=== PATIENT | male | born 1960 | race Caucasian/White ===

== ENCOUNTER 2019-08-29 07:11 | Inpatient (IN) ==
[2019-08-29 08:36] LABS: Albumin 2.8 G/DL (3.4-5.0); Bilirubin,Total 1.4 MG/DL (0.2-1.0); Calcium 8.3 MG/DL (8.5-10.1); Osmolality,Calculated 290.5 MOS/KG (273-304); Total Protein 6.8 G/DL (6.4-8.3)
[2019-08-29 08:49] LABS: Basophils # 0.1 10*3/uL (0.0-0.2); Basophils % 0.6 % (0.0-0.8); Eosinophils # 0.1 10*3/uL (0.0-0.87); Eosinophils % 1.1 % (0.00-10.9); Hematocrit 40.6 VOL% (42.0-52.0); Hemoglobin 13.3 GM/DL (14.0-18.0); Immature Granulocytes % 15.9 %; Immature Granulocytes Absolute 2.08 #; Lymphocytes # 0.9 10*3/uL (1.4-4.0); Lymphocytes % 6.6 % (21.2-54.2); Mean Corpuscular HGB Conc 32.8 GM/DL (32-36); Mean Corpuscular Volume 92.1 FL (87-102); Mean Platelet Volume 11.5 FL (9.6-12.0); Monocytes % 0.4 % (1.7-12.7); Neutrophils % 75.4 % (38.7-73.9); Red Blood Count 4.41 MC/CUMM (3.8-5.5); Red Cell Distribution Width 12.6 % (9.3-17.3); White Blood Count 13.1 T/CUMM (4-12)
[2019-08-29 08:54] LABS: Platelet Count 18 T/CUMM (130-400)
[2019-08-29 09:14] LABS: Band Neutrophils 9 % (0-10); Lymphocytes 5 % (20-55); Platelet Estimate Decreased; Segmented Neutrophils 84 % (50-85); Total Cells Counted 100
[2019-08-29 09:15] LABS: Anisocytosis 1+; Smudge Cells Few
[2019-08-29] MEDS ORDERED: ONDANSETRON 4 MG/2 ML VIAL ONE (09:24)
[2019-08-29] MEDS ORDERED: MORPHINE 4 MG/1 ML VIAL ONE (09:24)
[2019-08-29] MEDS ORDERED: ONDANSETRON 4 MG/2 ML VIAL IV STA (09:32)
[2019-08-29] MEDS ORDERED: MORPHINE 4 MG/1 ML VIAL IV STA (09:32)
[2019-08-29] MEDS ORDERED: ONDANSETRON 4 MG/2 ML VIAL IV PRN (11:18)
[2019-08-29] MEDS ORDERED: ACETAMINOPHEN 325 MG TABLET PO PRN (11:18)
[2019-08-29] MEDS ORDERED: SODIUM CHLORIDE 0.9% 1,000 ML IV PRN (11:42)
[2019-08-29] MEDS: ALBUTEROL/IPRATROPIUM 3 ML NEB RESP TX SCH ×2 (12:01→20:24)
[2019-08-29] MEDS: SODIUM CHLORIDE 0.9% 1,000 ML IV SCH (12:55)
[2019-08-29] MEDS: MORPHINE 4 MG/1 ML VIAL IV PRN ×2 (14:06→23:17)
[2019-08-30] MEDS: ALBUTEROL/IPRATROPIUM 3 ML NEB RESP TX SCH ×4 (00:05→20:28)
[2019-08-30] MEDS: SODIUM CHLORIDE 0.9% 1,000 ML IV SCH ×2 (00:29→13:49)
[2019-08-30 04:50] LABS: Basophils # 0.1 10*3/uL (0.0-0.2); Basophils % 1.2 % (0.0-0.8); Eosinophils # 0.1 10*3/uL (0.0-0.87); Eosinophils % 3.5 % (0.00-10.9); Hematocrit 32.5 VOL% (42.0-52.0); Hemoglobin 10.7 GM/DL (14.0-18.0); Immature Granulocytes % 19.7 %; Immature Granulocytes Absolute 0.79 #; Lymphocytes % 24.1 % (21.2-54.2); Mean Corpuscular HGB Conc 32.9 GM/DL (32-36); Mean Corpuscular Volume 90.8 FL (87-102); Mean Platelet Volume 10.6 FL (9.6-12.0); Monocytes % 1.5 % (1.7-12.7); Red Blood Count 3.58 MC/CUMM (3.8-5.5); Red Cell Distribution Width 12.4 % (9.3-17.3)
[2019-08-30 04:53] LABS: Platelet Count 17 T/CUMM (130-400)
[2019-08-30 05:18] LABS: Band Neutrophils 2 % (0-10); Eosinophils 5 % (0-10); Lymphocytes 25 % (20-55); Platelet Estimate Decreased; Segmented Neutrophils 65 % (50-85); Total Cells Counted 100
[2019-08-30 05:19] LABS: Albumin 2.5 G/DL (3.4-5.0); Bilirubin,Total 1.7 MG/DL (0.2-1.0); Calcium 8.2 MG/DL (8.5-10.1); Osmolality,Calculated 282.5 MOS/KG (273-304); Thyroid Stimulating Hormone 0.718 uIU/ml (0.358-3.74); Total Protein 6.2 G/DL (6.4-8.3)
[2019-08-30 05:19] LABS: Hypochromasia 1+
[2019-08-30] MEDS: MORPHINE 4 MG/1 ML VIAL IV PRN ×3 (06:26→15:52)
[2019-08-30] MEDS: PANTOPRAZOLE 40 MG TABLET PO SCH (08:19)
[2019-08-31] MEDS: ALBUTEROL/IPRATROPIUM 3 ML NEB RESP TX SCH ×4 (00:01→19:34)
[2019-08-31 04:45] LABS: Basophils % 1.6 % (0.0-0.8); Eosinophils # 0.1 10*3/uL (0.0-0.87); Eosinophils % 4.2 % (0.00-10.9); Hematocrit 29.9 VOL% (42.0-52.0); Immature Granulocytes % 0.5 %; Immature Granulocytes Absolute 0.01 #; Lymphocytes # 1.2 10*3/uL (1.4-4.0); Lymphocytes % 61.3 % (21.2-54.2); Mean Corpuscular HGB Conc 33.4 GM/DL (32-36); Mean Corpuscular Volume 90.3 FL (87-102); Mean Platelet Volume 11.4 FL (9.6-12.0); Monocytes % 2.6 % (1.7-12.7); Neutrophils % 29.8 % (38.7-73.9); Red Blood Count 3.31 MC/CUMM (3.8-5.5); Red Cell Distribution Width 12.3 % (9.3-17.3); White Blood Count 1.9 T/CUMM (4-12)
[2019-08-31 05:04] LABS: Platelet Count 23 T/CUMM (130-400)
[2019-08-31 05:18] LABS: Atypical Lymphocytes Few; Eosinophils 8 % (0-10); Lymphocytes 53 % (20-55); Segmented Neutrophils 35 % (50-85); Total Cells Counted 100
[2019-08-31 05:19] LABS: Albumin 2.5 G/DL (3.4-5.0); Bilirubin,Total 1.8 MG/DL (0.2-1.0); Calcium 8.1 MG/DL (8.5-10.1); Hypochromasia Slight; Microcytosis Slight; Osmolality,Calculated 281.4 MOS/KG (273-304); Platelet Estimate Decreased
[2019-08-31] MEDS ORDERED: ALBUTEROL/IPRATROPIUM 3 ML NEB RESP TX PRN (08:46)
[2019-08-31] MEDS: PANTOPRAZOLE 40 MG TABLET PO SCH (09:33)
[2019-08-31] MEDS: fentaNYL 50 MCG/HR PATCH TRANSDERM SCH (10:50)
[2019-08-31] MEDS: SODIUM CHLORIDE 0.9% 1,000 ML IV SCH (11:35)
[2019-08-31] MEDS: MORPHINE 4 MG/1 ML VIAL IV PRN (12:25)
[2019-08-31] MEDS ORDERED: VANCOMYCIN INJ 1,000 MG in SODIUM CHLORIDE 0.9% 250 ML IV SCH (13:30)
[2019-08-31] MEDS ORDERED: VANCOMYCIN INJ 2,250 MG in SODIUM CHLORIDE 0.9% 500 ML IV ONE (14:30)
[2019-08-31] MEDS: GABAPENTIN 100 MG CAPSULE PO SCH ×2 (15:16→20:37)
[2019-08-31] MEDS: oxyCODONE/ACETAMINOPHEN 5-325 MG TABLET PO PRN (17:03)
[2019-08-31] MEDS: oxyCODONE ER 20 MG TABLET PO SCH (20:37)
[2019-09-01] MEDS: ALBUTEROL/IPRATROPIUM 3 ML NEB RESP TX SCH ×2 (01:21→07:45)
[2019-09-01] MEDS: VANCOMYCIN INJ 1,750 MG in SODIUM CHLORIDE 0.9% 500 ML IV SCH ×2 (02:13→18:07)
[2019-09-01 04:41] LABS: Basophils % 0.6 % (0.0-0.8); Eosinophils % 1.9 % (0.00-10.9); Hematocrit 29.7 VOL% (42.0-52.0); Hemoglobin 9.9 GM/DL (14.0-18.0); Lymphocytes # 1.4 10*3/uL (1.4-4.0); Lymphocytes % 88.2 % (21.2-54.2); Mean Corpuscular HGB Conc 33.3 GM/DL (32-36); Mean Corpuscular Volume 89.7 FL (87-102); Mean Platelet Volume 11.5 FL (9.6-12.0); Monocytes % 3.1 % (1.7-12.7); Neutrophils % 6.2 % (38.7-73.9); Red Blood Count 3.31 MC/CUMM (3.8-5.5); Red Cell Distribution Width 12.3 % (9.3-17.3); White Blood Count 1.6 T/CUMM (4-12)
[2019-09-01 05:01] LABS: Platelet Count 8 T/CUMM (130-400)
[2019-09-01 05:13] LABS: Calcium 7.9 MG/DL (8.5-10.1); Osmolality,Calculated 269.2 MOS/KG (273-304)
[2019-09-01 05:35] LABS: Apearance,Urine CLEAR (Clear); Bilirubin,Urine Negative (Negative); Blood, Urine Moderate mg/dL (Negative); Glucose,Urine (UA) 50 mg/dL (Negative); Ketones,Urine Negative (Negative); Mucus,Urine Occasional /LPF (Occasional); Nitrite,Urine Negative (Negative); Protein,Urine 30 MG/DL; RBC,Urine 5 /HPF (0-4); Urine Color Yellow (Yellow); Urine Specific Gravity 1.016 (1.001-1.035); WBC,Urine 2 /HPF (0-6)
[2019-09-01] MEDS ORDERED: SODIUM CHLORIDE 0.9% 1,000 ML IV PRN (05:43)
[2019-09-01 05:58] LABS: Atypical Lymphocytes Few; Lymphocytes 84 % (20-55); Platelet Estimate Decreased; Segmented Neutrophils 11 % (50-85); Total Cells Counted 100
[2019-09-01 05:59] LABS: Microcytosis Slight
[2019-09-01] MEDS ORDERED: MAGNESIUM SULF RIDER 2 GM in PREMIX 1 EACH IV ONE (07:22)
[2019-09-01 07:57] LABS: INR 1.2; PT Patient Result 13.3 SECS (9.6-12.2); Partial Thromboplastin Time 29.9 SECS (20.8-36.0)
[2019-09-01] MEDS: oxyCODONE ER 20 MG TABLET PO SCH ×2 (09:26→20:37)
[2019-09-01] MEDS: PANTOPRAZOLE 40 MG TABLET PO SCH (09:26)
[2019-09-01] MEDS: GABAPENTIN 100 MG CAPSULE PO SCH ×3 (09:26→20:37)
[2019-09-01] MEDS: SODIUM CHLORIDE 0.9% 1,000 ML IV SCH ×3 (10:11→20:43)
[2019-09-01] MEDS: FILGRASTIM-SNDZ 480 MCG/0.8 ML SYRINGE SUBCUT SCH (10:25)
[2019-09-01] MEDS ORDERED: POTASSIUM CHLORIDE 20 MEQ TABLET PO ONE (10:54)
[2019-09-01] MEDS: METOPROLOL TARTRATE 25 MG TABLET PO SCH ×2 (13:50→20:38)
[2019-09-02] MEDS: VANCOMYCIN INJ 1,750 MG in SODIUM CHLORIDE 0.9% 500 ML IV SCH (02:15)
[2019-09-02 06:14] LABS: Eosinophils % 3.8 % (0.00-10.9); Hematocrit 28.1 VOL% (42.0-52.0); Hemoglobin 9.1 GM/DL (14.0-18.0); Lymphocytes # 0.8 10*3/uL (1.4-4.0); Lymphocytes % 79.2 % (21.2-54.2); Mean Corpuscular HGB Conc 32.4 GM/DL (32-36); Mean Corpuscular Volume 91.8 FL (87-102); Mean Platelet Volume 13.6 FL (9.6-12.0); Monocytes % 10.4 % (1.7-12.7); Neutrophils % 6.6 % (38.7-73.9); Red Blood Count 3.06 MC/CUMM (3.8-5.5); Red Cell Distribution Width 12.4 % (9.3-17.3); White Blood Count 1.1 T/CUMM (4-12)
[2019-09-02 06:30] LABS: Platelet Count 36 T/CUMM (130-400)
[2019-09-02 06:42] LABS: Calcium 7.7 MG/DL (8.5-10.1); Osmolality,Calculated 268.2 MOS/KG (273-304)
[2019-09-02 06:43] LABS: Atypical Lymphocytes Few; Eosinophils 3 % (0-10); Hypochromasia Slight; Lymphocytes 89 % (20-55); Microcytosis Slight; Platelet Estimate Decreased; Segmented Neutrophils 2 % (50-85); Total Cells Counted 100
[2019-09-02] MEDS: METOPROLOL TARTRATE 25 MG TABLET PO SCH ×2 (08:58→21:19)
[2019-09-02] MEDS: PANTOPRAZOLE 40 MG TABLET PO SCH (08:58)
[2019-09-02] MEDS: GABAPENTIN 100 MG CAPSULE PO SCH ×3 (08:58→21:19)
[2019-09-02] MEDS: oxyCODONE ER 20 MG TABLET PO SCH ×2 (08:58→21:19)
[2019-09-02] MEDS: FILGRASTIM-SNDZ 480 MCG/0.8 ML SYRINGE SUBCUT SCH (08:59)
[2019-09-02] MEDS ORDERED: METOPROLOL TARTRATE 25 MG TABLET PO ONE (10:39)
[2019-09-02] MEDS ORDERED: SODIUM CHLORIDE 0.9% 1,000 ML IV PRN (10:52)
[2019-09-02] MEDS: SODIUM CHLORIDE 0.9% 1,000 ML IV SCH (12:10)
[2019-09-03] MEDS: SODIUM CHLORIDE 0.9% 1,000 ML IV SCH (01:30)
[2019-09-03 05:28] LABS: Basophils % 0.4 % (0.0-0.8); Eosinophils # 0.1 10*3/uL (0.0-0.87); Eosinophils % 2.4 % (0.00-10.9); Hemoglobin 8.3 GM/DL (14.0-18.0); Immature Granulocytes % 1.6 %; Immature Granulocytes Absolute 0.04 #; Lymphocytes # 1.2 10*3/uL (1.4-4.0); Lymphocytes % 48.8 % (21.2-54.2); Mean Corpuscular HGB Conc 33.2 GM/DL (32-36); Mean Corpuscular Volume 89.6 FL (87-102); Mean Platelet Volume 12.5 FL (9.6-12.0); Monocytes % 10.6 % (1.7-12.7); Neutrophils % 36.2 % (38.7-73.9); Red Blood Count 2.79 MC/CUMM (3.8-5.5); Red Cell Distribution Width 12.7 % (9.3-17.3); White Blood Count 2.5 T/CUMM (4-12)
[2019-09-03 05:31] LABS: Platelet Count 29 T/CUMM (130-400)
[2019-09-03 05:46] LABS: Atypical Lymphocytes Few; Band Neutrophils 9 % (0-10); Hypochromasia 1+; Lymphocytes 46 % (20-55); Metamyelocytes 1 %; Segmented Neutrophils 29 % (50-85); Total Cells Counted 100
[2019-09-03 05:47] LABS: Microcytosis 1+; Platelet Estimate Decreased
[2019-09-03 05:51] LABS: Calcium 7.9 MG/DL (8.5-10.1); Osmolality,Calculated 268.1 MOS/KG (273-304)
[2019-09-03] MEDS: fentaNYL 50 MCG/HR PATCH TRANSDERM SCH (08:54)
[2019-09-03] MEDS: PANTOPRAZOLE 40 MG TABLET PO SCH (08:55)
[2019-09-03] MEDS: POTASSIUM CHLORIDE 20 MEQ TABLET PO SCH ×2 (08:55→10:42)
[2019-09-03] MEDS: oxyCODONE ER 20 MG TABLET PO SCH ×2 (08:55→20:25)
[2019-09-03] MEDS: METOPROLOL TARTRATE 25 MG TABLET PO SCH ×2 (08:55→20:25)
[2019-09-03] MEDS: FILGRASTIM-SNDZ 480 MCG/0.8 ML SYRINGE SUBCUT SCH (08:55)
[2019-09-03] MEDS: GABAPENTIN 100 MG CAPSULE PO SCH ×3 (08:55→20:25)
[2019-09-04 05:52] LABS: Calcium 8.1 MG/DL (8.5-10.1); Osmolality,Calculated 267.4 MOS/KG (273-304)
[2019-09-04 06:54] LABS: Basophils # 0.1 10*3/uL (0.0-0.2); Basophils % 0.8 % (0.0-0.8); Eosinophils # 0.3 10*3/uL (0.0-0.87); Eosinophils % 2.4 % (0.00-10.9); Hematocrit 28.5 VOL% (42.0-52.0); Hemoglobin 9.3 GM/DL (14.0-18.0); Immature Granulocytes % 1.9 %; Immature Granulocytes Absolute 0.22 #; Lymphocytes # 2.5 10*3/uL (1.4-4.0); Lymphocytes % 21.2 % (21.2-54.2); Mean Corpuscular HGB Conc 32.6 GM/DL (32-36); Mean Corpuscular Volume 91.1 FL (87-102); Mean Platelet Volume 14.5 FL (9.6-12.0); NRBC # 0.05 10*3/uL; Neutrophils % 61.7 % (38.7-73.9); Platelet Count 53 T/CUMM (130-400); Red Blood Count 3.13 MC/CUMM (3.8-5.5); Red Cell Distribution Width 12.8 % (9.3-17.3); White Blood Count 11.9 T/CUMM (4-12)
[2019-09-04] MEDS: SODIUM CHLORIDE 0.9% 1,000 ML IV SCH ×2 (07:12→10:09)
[2019-09-04 07:34] LABS: Band Neutrophils 28 % (0-10); Eosinophils 3 % (0-10); Lymphocytes 21 % (20-55); Platelet Estimate Decreased; Segmented Neutrophils 38 % (50-85); Total Cells Counted 100
[2019-09-04] MEDS: PANTOPRAZOLE 40 MG TABLET PO SCH (08:26)
[2019-09-04] MEDS: METOPROLOL TARTRATE 25 MG TABLET PO SCH ×2 (08:26→21:06)
[2019-09-04] MEDS: oxyCODONE ER 20 MG TABLET PO SCH ×2 (08:26→21:06)
[2019-09-04] MEDS: GABAPENTIN 100 MG CAPSULE PO SCH ×3 (08:26→21:06)
[2019-09-04] MEDS: POTASSIUM CHLORIDE 20 MEQ TABLET PO PRN ×3 (10:23→15:45)
[2019-09-04] MEDS: oxyCODONE/ACETAMINOPHEN 5-325 MG TABLET PO PRN (19:54)
[2019-09-04] MEDS: APIXABAN 2.5 MG TABLET PO SCH (21:06)
[2019-09-05 05:46] LABS: Basophils # 0.1 10*3/uL (0.0-0.2); Basophils % 0.7 % (0.0-0.8); Eosinophils # 0.3 10*3/uL (0.0-0.87); Eosinophils % 1.4 % (0.00-10.9); Hematocrit 26.8 VOL% (42.0-52.0); Hemoglobin 8.7 GM/DL (14.0-18.0); Immature Granulocytes % 10.4 %; Immature Granulocytes Absolute 2.15 #; Lymphocytes # 2.4 10*3/uL (1.4-4.0); Lymphocytes % 11.8 % (21.2-54.2); Mean Corpuscular HGB Conc 32.5 GM/DL (32-36); Mean Corpuscular Volume 91.2 FL (87-102); Mean Platelet Volume 13.5 FL (9.6-12.0); Monocytes % 8.8 % (1.7-12.7); NRBC # 0.06 10*3/uL; Neutrophils % 66.9 % (38.7-73.9); Red Blood Count 2.94 MC/CUMM (3.8-5.5); White Blood Count 20.6 T/CUMM (4-12)
[2019-09-05 05:59] LABS: Platelet Count 72 T/CUMM (130-400)
[2019-09-05 06:10] LABS: Albumin 2.1 G/DL (3.4-5.0); Bilirubin,Total 0.8 MG/DL (0.2-1.0); Calcium 7.9 MG/DL (8.5-10.1); Osmolality,Calculated 273.8 MOS/KG (273-304); Total Protein 5.5 G/DL (6.4-8.3)
[2019-09-05 06:50] LABS: Band Neutrophils 6 % (0-10); Eosinophils 5 % (0-10); Lymphocytes 10 % (20-55); Segmented Neutrophils 68 % (50-85); Total Cells Counted 100
[2019-09-05 06:51] LABS: Hypochromasia 1+; Platelet Estimate Decreased
[2019-09-05] MEDS: oxyCODONE ER 20 MG TABLET PO SCH ×2 (08:40→20:25)
[2019-09-05] MEDS: GABAPENTIN 100 MG CAPSULE PO SCH ×4 (08:40→22:24)
[2019-09-05] MEDS: APIXABAN 2.5 MG TABLET PO SCH ×2 (08:41→20:23)
[2019-09-05] MEDS: PANTOPRAZOLE 40 MG TABLET PO SCH (08:41)
[2019-09-05] MEDS: METOPROLOL TARTRATE 25 MG TABLET PO SCH ×2 (08:41→20:25)
[2019-09-05] MEDS ORDERED: LORazepam 0.5 MG TABLET PO PRN (08:54)
[2019-09-05] MEDS ORDERED: ALPRAZolam 0.25 MG TABLET PO PRN (08:58)
[2019-09-05] MEDS ORDERED: POTASSIUM CHLORIDE 20 MEQ TABLET PO ONE (09:00)
[2019-09-05] MEDS ORDERED: MAGNESIUM SULF RIDER 2 GM in PREMIX 1 EACH IV ONE (09:00)
[2019-09-06 05:06] LABS: Basophils # 0.1 10*3/uL (0.0-0.2); Basophils % 0.6 % (0.0-0.8); Eosinophils # 0.3 10*3/uL (0.0-0.87); Hematocrit 27.1 VOL% (42.0-52.0); Hemoglobin 8.9 GM/DL (14.0-18.0); Immature Granulocytes % 10.9 %; Immature Granulocytes Absolute 2.71 #; Lymphocytes # 3.2 10*3/uL (1.4-4.0); Mean Corpuscular HGB Conc 32.8 GM/DL (32-36); Mean Corpuscular Volume 91.6 FL (87-102); Mean Platelet Volume 13.1 FL (9.6-12.0); Monocytes % 11.1 % (1.7-12.7); NRBC # 0.15 10*3/uL; Neutrophils % 63.4 % (38.7-73.9); Platelet Count 78 T/CUMM (130-400); Red Blood Count 2.96 MC/CUMM (3.8-5.5); Red Cell Distribution Width 13.3 % (9.3-17.3); White Blood Count 24.8 T/CUMM (4-12)
[2019-09-06 05:26] LABS: Calcium 7.9 MG/DL (8.5-10.1); Osmolality,Calculated 266.2 MOS/KG (273-304)
[2019-09-06 05:28] LABS: Band Neutrophils 6 % (0-10); Eosinophils 2 % (0-10); Hypochromasia 1+; Lymphocytes 11 % (20-55); Macrocytosis Slight; Myelocytes 2 %; Nucleated Red Blood Cells 1 (0-5); Platelet Estimate Decreased; Polychromasia Slight; Segmented Neutrophils 70 % (50-85); Total Cells Counted 100
[2019-09-06] MEDS: POTASSIUM CHLORIDE 20 MEQ TABLET PO PRN ×2 (07:11→09:18)
[2019-09-06 08:21] VITALS: BP 131/57
[2019-09-06] MEDS: METOPROLOL TARTRATE 25 MG TABLET PO SCH (09:18)
[2019-09-06] MEDS: PANTOPRAZOLE 40 MG TABLET PO SCH (09:19)
[2019-09-06] MEDS: oxyCODONE ER 20 MG TABLET PO SCH (09:19)
[2019-09-06] MEDS: APIXABAN 2.5 MG TABLET PO SCH (09:19)
[2019-09-06] MEDS: GABAPENTIN 100 MG CAPSULE PO SCH (09:23)
[2019-09-06] MEDS: fentaNYL 50 MCG/HR PATCH TRANSDERM SCH (11:02)
== END 2019-09-06 11:28 | disposition home or self-care (01) | DRG 813 ==
LOC: EDUNIT# → EDBD → N.EDINP 07:11 → N.ED 07:11 → SUATTDRO 11:18 → N.EDINP 12:30 → N.4E 12:37 → SUATTDRO 08-30 14:55 → SUPCPDRO 08-30 14:55
PROVIDERS: ADMIT Phlebology; ATTEND Family Medicine